=== PATIENT | female | born 1975 | race Caucasian/White ===

== ENCOUNTER 2017-04-22 09:46 | Day surgery (SDC) | payer OTHER ==
[~2017-04-22 09:46] MED LIST: BACTROINT; CELEXA20 PO; LEVSINTAB PO; XYZAL5 MG
== END 2017-04-22 23:59 | disposition home or self-care (01) ==
LOC: MSC 09:46
PROVIDERS: Surgery Plastic and Reconstructive Surgery
PROC: 0HPT0JZ Removal of Synthetic Substitute from Right Breast, Open Approach (ICD-10-PCS; 2017-04-22)
PROC: 0HPU0JZ Removal of Synthetic Substitute from Left Breast, Open Approach (ICD-10-PCS; principal; 2017-04-22 10:30)
DX: Z45.812 Encounter for adjustment or removal of left breast implant (principal); Z45.811 Encounter for adjustment or removal of right breast implant; F17.210 Nicotine dependence, cigarettes, uncomplicated; T75.3XXA Motion sickness, initial encounter; F41.9 Anxiety disorder, unspecified; K58.9 Irritable bowel syndrome, unspecified; Z88.8 Allergy status to other drugs, medicaments and biological substances; Z88.5 Allergy status to narcotic agent; Z79.899 Other long term (current) drug therapy; Z98.890 Other specified postprocedural states
CPT/HCPCS: 84703; A9270-GY; J0690; J2250; J2270; J2405; J3010